=== PATIENT | female | born 1965 | race Two or more races ===

== ENCOUNTER 2016-04-25 12:20 | Emergency (ER) | payer MEDICAID, OTHER ==
[2016-04-25] MEDS ORDERED: DIPHTH,PERTUSS(ACELL),TET VAC 0.5 ML VIAL IM V ONE (12:49)
== END 2016-04-25 13:15 | disposition home or self-care (01) ==
LOC: ED 12:20
DX: S61.214A Laceration without foreign body of right ring finger without damage to nail, initial encounter (principal); I10 Essential (primary) hypertension; W26.8XXA Contact with other sharp object(s), not elsewhere classified, initial encounter; Y93.G1 Activity, food preparation and clean up; Y92.000 Kitchen of unspecified non-institutional (private) residence as the place of occurrence of the external cause